=== PATIENT | female | born 1975 | race American Indian/Alaskan Native ===

== ENCOUNTER 2016-03-05 09:45 | Emergency (ER) | payer BC ==
[2016-03-05 10:01] VITALS: BP 140/81
--- NOTE | 2016-03-05 10:22 | Emergency Department Report ---
Chief Complaint: Back Pain/Injury Stated Complaint: SEVERE BACK/LEG/JOINT PAIN Time Seen by Provider: 03/05/16 10:19 - HPI History of Present Illness: 40-year-old female comes in for complaint of back pain that started about 3-4 days, she's been having joint pain for a while. She's been taking Aleve and ibuprofen. Denies any trauma to the back. - Exam Vital Signs: Vital Signs 03/05/16 09:58 Temperature 98.4 F Pulse Rate 66 Respiratory 16 Rate Blood Pressure 140/81 O2 Sat by Pulse 98 Oximetry Physical Exam: Assessment and oriented 3. No acute distress. Tenderness to the left sacral notch MSE screening note: Focused history and physical exam performed. Due to findings the following was ordered: Patient be evaluated in fast track for further evaluation. ED Disposition for MSE Condition: Stable
[2016-03-05] MEDS ORDERED: TORADOL IM ONE (12:25)
--- NOTE | 2016-03-05 12:30 | Emergency Department Report ---
ED Back Pain/Injury HPI - General Chief Complaint: Back Pain/Injury Stated Complaint: SEVERE BACK/LEG/JOINT PAIN Time Seen by Provider: 03/05/16 10:19 Source: patient Mode of arrival: Ambulatory Limitations: No Limitations, Physical Limitation (Limited range of motion and walks with a limp due to pain) - History of Present Illness Initial Comments: Patient presents with lower left back pain that radiates down left leg. She has a history of chronic joint pain in hands, knees, elbows. She denies urinary symptoms at this time, nausea, vomiting, chills, fever. MD Complaint: back pain -: Gradual Similar Symptoms Previously: No Place: home Radiation: left leg Severity: severe Severity scale (0 -10): 8 Quality: sharp, aching Consistency: constant Improves With: none Worsens With: movement, walking Context: other (patient denies injury) Associated Symptoms: denies: numbness, difficulty urinating, incontinence, fever /chills - Related Data Previous Rx's Medication Instructions Recorded Last Taken Type Cyclobenzaprine HCl 7.5 mg PO BID PRN #14 tab 03/05/16 Unknown Rx [Cyclobenzaprine 7.5 MG TAB] Diclofenac Sodium 75 mg PO DAILY #7 tablet. 03/05/16 Unknown Rx Allergies Allergy/AdvReac Type Severity Reaction Status Date / Time shellfish derived Allergy Anaphylaxis Verified 03/05/16 10:01 ED Review of Systems ROS: Stated complaint: SEVERE BACK/LEG/JOINT PAIN Other details as noted in HPI Constitutional: denies: chills, fever Respiratory: denies: cough, shortness of breath, wheezing Cardiovascular: denies: chest pain, palpitations Gastrointestinal: denies: abdominal pain, nausea, diarrhea Genitourinary: denies: urgency, dysuria, discharge Musculoskeletal: as per HPI Skin: denies: rash, lesions Neurological: denies: headache, weakness, paresthesias ED Past Medical Hx - Surgical History Additional Surgical History: PARTIAL HYSTERECTOMY. - Social History Smoking Status: Never Smoker Substance Use Type: Alcohol - Medications Home Medications: Home Medications Medication Instructions Recorded Confirmed Last Taken Type Cyclobenzaprine HCl 7.5 mg PO BID PRN #14 tab 03/05/16 Unknown Rx [Cyclobenzaprine 7.5 MG TAB] Diclofenac Sodium 75 mg PO DAILY #7 tablet. 03/05/16 Unknown Rx ED Physical Exam - General Limitations: No Limitations General appearance: alert, in no apparent distress - Head Head exam: Present: atraumatic, normocephalic - Eye Eye exam: Present: normal appearance, PERRL - Neck Neck exam: Present: normal inspection, full ROM - Respiratory Respiratory exam: Present: normal lung sounds bilaterally. Absent: respiratory distress - Cardiovascular Cardiovascular Exam: Present: regular rate, normal rhythm. Absent: systolic murmur, diastolic murmur, rubs, gallop - GI/Abdominal GI/Abdominal exam: Present: soft, normal bowel sounds - Back Exam Back exam: Present: normal inspection, tenderness (left lumber), other ( positive left leg lifts). Absent: full ROM (limited without pain) - Neurological Exam Neurological exam: Present: alert, oriented X3, abnormal gait (walking with a limp due to pain) - Psychiatric Psychiatric exam: Present: normal affect, normal mood - Skin Skin exam: Present: warm, dry, intact, normal color. Absent: rash ED Course Vital Signs 03/05/16 09:58 Temperature 98.4 F Pulse Rate 66 Respiratory 16 Rate Blood Pressure 140/81 O2 Sat by Pulse 98 Oximetry ED Medical Decision Making - Medical Decision Making Patient presents with left side lumbar pain that radiates down the left leg. She denies injury. I will give her diclofenac daily 7 days and cyclobenzaprine. I will recommend she follows up with her PCP if symptoms do not resolve or worsen - Differential Diagnosis lumbago, muscle spasm, spondylosis Critical Care Time: No Critical care attestation.: If time is entered above; I have spent that time in minutes in the direct care of this critically ill patient, excluding procedure time. ED Disposition Clinical Impression: Lumbago, Muscle strain, Sciatica Disposition: DISCHARGED TO HOME OR SELFCARE Is pt being admited?: No Does the pt Need Aspirin: No Condition: Stable Instructions: Muscle Strain (ED), Sciatica (ED), Low Back Strain (ED), Back Pain (ED) Additional Instructions: Follow-up with PCP if symptoms fail to resolve or worsen. Rest, ice, heat, stretching, weight loss, chiropractic, massage may help with back pain. Prescriptions: Cyclobenzaprine HCl [Cyclobenzaprine 7.5 MG TAB] 7.5 mg PO BID PRN #14 tab PRN Reason: Pain Diclofenac Sodium 75 mg PO DAILY #7 tablet.dr Alex: Work/School Release Form(ED) Time of Disposition: 12:33
== END 2016-03-05 12:55 | disposition home or self-care (01) ==
LOC: ED 09:45
DX: S39.012A Strain of muscle, fascia and tendon of lower back, initial encounter (principal); M54.30 Sciatica, unspecified side; Z91.013 Allergy to seafood; X58.XXXA Exposure to other specified factors, initial encounter; Y93.9 Activity, unspecified; Y99.9 Unspecified external cause status; Y92.009 Unspecified place in unspecified non-institutional (private) residence as the place of occurrence of the external cause
CPT/HCPCS: 96372; 99282; J1885